=== PATIENT | female | born 1945 | race Caucasian/White ===

== ENCOUNTER 2018-09-26 21:25 | Inpatient (IN) | payer MEDICARE ==
[~2018-09-26] VITALS: Ht 162.6 cm; Wt 65.9 kg
[~2018-09-26 21:25] MED LIST: FENO145T38 PO; LEVO100T PO; LEVO175T2 PO; LISI1TAB13 PO; LOSA25TA96 PO; ONDA4TAB6 PO; SIMV20TA5 PO; VALA100027 PO
[2018-09-26 22:13] LABS: CLARITY,URINE SLIGHTLY CLOUDY (Clear); COLOR,URINE YELLOW (Yellow); GLUCOSE, URINE NEGATIVE (Neg); KETONES,URINE NEGATIVE (Neg); LEUKOCYTE ESTERASE ,URINE NEGATIVE (Neg); NITRITES, URINE POSITIVE (Neg); OCCULT BLOOD,URINE TRACE-INTACT (Neg); PH,URINE 5.5 (4.8-8.0); PROTEIN,URINE >=300 mg/dl (Neg); UROBILINOGEN,URINE 0.2 E.U/dL (0.2-1.0)
[2018-09-26 22:14] LABS: UA COLLECTION TYPE STRAIGHT CATH
[2018-09-26 22:36] LABS: FINE GRANULAR CAST 0-3 /LPF (NEGATIVE)
[2018-09-26 22:38] LABS: BACTERIA,URINE 4+ /HPF (Neg); MUCUS STRANDS NONE SEEN /LPF (Neg); RBC,URINE NONE SEEN /HPF (0-2); SQUAMOUS EPITHELIAL CELL,UR NONE SEEN /LPF (FEW); WBC,URINE 30-50 /HPF (0-4)
[2018-09-26 22:40] LABS: CAL OXALATE CRYSTALS FEW /HPF (NEGATIVE); TRANSITIONAL EPI CELLS,URINE FEW /HPF; WBC CLUMPS,URINE FEW /HPF (NEGATIVE)
[2018-09-26] MEDS ORDERED: normal saline 1000ML IV soln IVB ONE ×2 (23:25→23:55)
[2018-09-26] MEDS ORDERED: cloNIDine 0.1 mg tablet PO ONE (23:30)
[2018-09-26] MEDS ORDERED: amLODIPine 5mg tablet PO ONE (23:55)
[2018-09-26] MEDS ORDERED: CefTRIAXone 2gm/D5W 50ml 50 ML IV ONE (23:55)
[2018-09-27 00:11] LABS: BASOPHILS % (AUTO) 0.6 % (0-1); EOSINOPHILS # (AUTO) 0.2 X10'3 (0-0.9); EOSINOPHILS % (AUTO) 3.1 % (0-6); HEMATOCRIT 36.6 % (35.0-45.0); HEMOGLOBIN 12.4 g/dl (12.0-16.0); LYMPHOCYTES # (AUTO) 1.7 X10'3 (1.1-4.8); LYMPHOCYTES % (AUTO) 26.3 % (21-51); MEAN CORPUSCULAR HEMOGLOBIN 32.8 PG (27.0-31.0); MEAN CORPUSCULAR HGB CONC 33.8 % (33.0-36.5); MEAN CORPUSCULAR VOLUME 96.8 FL (78-98); MEAN PLATELET VOLUME 8.7 FL (7.4-10.4); MONOCYTES # (AUTO) 0.4 X10'3 (0-0.9); MONOCYTES % (AUTO) 6.8 % (2-12); NEUTROPHILS % (AUTO) 63.2 % (42-75); PLATELET COUNT 230 X10'3 (140-440); RED BLOOD COUNT 3.78 X10'6 (4.20-5.60); WHITE BLOOD COUNT 6.3 X10'3 (4.5-11.0)
[2018-09-27 00:13] LABS: PARTIAL THROMBOPLASTIN TIME 27 SECONDS (22-32); PROTHROMBIN TIME 9.9 SECONDS (9.0-12.0)
[2018-09-27 00:15] LABS: ALANINE AMINOTRANSFERASE 27 U/L (12-78); ALBUMIN 2.3 G/DL (3.4-5.0); ALBUMIN/GLOBULIN RATIO 0.7 (1.1-1.5); ALKALINE PHOSPHATASE 87 IU/L (46-116); ANION GAP 5 (8-16); ASPARTATE AMINO TRANSFERASE 28 U/L (10-37); BILIRUBIN,TOTAL 0.3 MG/DL (0.1-1.0); BLOOD UREA NITROGEN 28 MG/DL (7-18); BUN/CREATININE RATIO 18.2 (6.6-38.0); CALCIUM 9.4 MG/DL (8.5-10.1); CHLORIDE 109 MMOL/L (99-107); CREATININE 1.54 MG/DL (0.40-0.90); GLUCOSE 100 MG/DL (70-104); POTASSIUM 3.6 MMOL/L (3.5-5.1); SODIUM 145 MMOL/L (135-145); TOTAL CARBON DIOXIDE 31.4 MMOL/L (24-32); TOTAL PROTEIN 5.4 G/DL (6.4-8.2); eGFR 33 ML/MIN
[2018-09-27] MEDS ORDERED: GABA-532 PO ×2 (00:31→00:33)
[2018-09-27] MEDS ORDERED: DONE23TA7 PO (00:31)
[2018-09-27] MEDS ORDERED: DET2LAC PO (00:32)
[2018-09-27] MEDS ORDERED: MELO-102 PO (00:32)
[2018-09-27] MEDS ORDERED: normal saline 1000ml 1,000 ML IV SCH (01:29)
[2018-09-27] MEDS ORDERED: diphenhydrAMINE 25mg capsule PO PRN (01:30)
[2018-09-27] MEDS ORDERED: ondansetron/PF 4mg/2ml inj IV PRN (01:30)
[2018-09-27] MEDS ORDERED: magnesium hydroxide 30ml (MOM) UD suspension PO PRN (01:30)
[2018-09-27] MEDS ORDERED: HYDROmorphone 1 mg/ml syringe IV PRN (01:30)
[2018-09-27] MEDS ORDERED: mag hydrox/Alum hydrox/simeth 30ml oral suspension PO PRN (01:30)
[2018-09-27] MEDS ORDERED: acetaminophen 650mg rectal suppository RC PRN (01:30)
[2018-09-27] MEDS ORDERED: diphenhydrAMINE 50 mg/ml inj IV PRN (01:30)
[2018-09-27] MEDS ORDERED: hydrALAZINE 20mg/ml inj. IV PRN (01:30)
[2018-09-27] MEDS ORDERED: bisacodyl 10mg suppository rectal RC PRN (01:30)
[2018-09-27] MEDS ORDERED: acetaminophen 325mg tablet PO PRN ×2 (01:30)
[2018-09-27] MEDS ORDERED: morphine 2 MG/ML inj. syringe IV PRN (01:30)
[2018-09-27] MEDS ORDERED: metoclopramide 5 mg/ml inj IV PRN (01:30)
[2018-09-27 02:05] LABS: PHOSPHORUS 3.1 MG/DL (2.3-4.5); TROPONIN I < 0.04 NG/ML (0.0-0.05)
[2018-09-27] MEDS ORDERED: CEPH250T PO (03:19)
[2018-09-27] MEDS: docusate sod 100mg capsule PO SCH ×2 (08:00→20:42)
[2018-09-27] MEDS: cloNIDine 0.1 mg tablet PO SCH ×3 (08:00→20:42)
[2018-09-27] MEDS: heparin, porcine 5000 units/ml vial SQ SCH ×2 (10:56→15:37)
[2018-09-27 12:34] VITALS: BP 201/80
[2018-09-27 12:39] VITALS: BP 211/84
[2018-09-27] MEDS: CefTRIAXone/D5W-Rocephin 1gm 50 ML IV SCH (12:41)
[2018-09-27] MEDS ORDERED: amLODIPine 5mg tablet PO ONE (14:30)
[2018-09-27] MEDS: DONEPEZIL 23 MG PO SCH (14:35)
[2018-09-27] MEDS: levoTHYROXINE 100mcg tablet PO SCH (15:18)
[2018-09-27 15:21] VITALS: BP 173/70
[2018-09-27 16:18] LABS: CLARITY,URINE CLEAR (Clear); COLOR,URINE YELLOW (Yellow); GLUCOSE, URINE NEGATIVE (Neg); KETONES,URINE NEGATIVE (Neg); LEUKOCYTE ESTERASE ,URINE NEGATIVE (Neg); NITRITES, URINE NEGATIVE (Neg); OCCULT BLOOD,URINE SMALL (Neg); PH,URINE 7.5 (4.8-8.0); PROTEIN,URINE 100 mg/dl (Neg); UROBILINOGEN,URINE 0.2 E.U/dL (0.2-1.0)
[2018-09-27 16:58] LABS: UA COLLECTION TYPE FOLEY CATH
[2018-09-27 16:59] LABS: BACTERIA,URINE NONE SEEN /HPF (Neg); MUCUS STRANDS NONE SEEN /LPF (Neg); SQUAMOUS EPITHELIAL CELL,UR NONE SEEN /LPF (FEW); WBC,URINE 0-4 /HPF (0-4)
[2018-09-27 19:00] VITALS: BP 166/61
[2018-09-27] MEDS: oxybutynin 5mg tablet PO SCH (20:40)
[2018-09-27] MEDS: gabapentin 300mg capsule PO SCH (20:41)
[2018-09-27] MEDS: hyDRALAzine 10mg tablet PO PRN (20:41)
[2018-09-27] MEDS ORDERED: temazepam 15mg capsule PO PRN (21:00)
[2018-09-27 23:00] VITALS: BP 151/57
[2018-09-28] MEDS: CefTRIAXone/D5W-Rocephin 1gm 50 ML IV SCH ×2 (00:15→13:18)
[2018-09-28] MEDS: heparin, porcine 5000 units/ml vial SQ SCH ×3 (00:16→16:00)
[2018-09-28 03:00] VITALS: BP 170/69
[2018-09-28 06:48] LABS: BASOPHILS % (AUTO) 0.8 % (0-1); EOSINOPHILS # (AUTO) 0.3 X10'3 (0-0.9); EOSINOPHILS % (AUTO) 4.6 % (0-6); HEMATOCRIT 35.2 % (35.0-45.0); HEMOGLOBIN 11.7 g/dl (12.0-16.0); LYMPHOCYTES # (AUTO) 1.4 X10'3 (1.1-4.8); LYMPHOCYTES % (AUTO) 24.2 % (21-51); MEAN CORPUSCULAR HEMOGLOBIN 31.9 PG (27.0-31.0); MEAN CORPUSCULAR HGB CONC 33.1 % (33.0-36.5); MEAN CORPUSCULAR VOLUME 96.5 FL (78-98); MEAN PLATELET VOLUME 9.3 FL (7.4-10.4); MONOCYTES # (AUTO) 0.3 X10'3 (0-0.9); MONOCYTES % (AUTO) 4.7 % (2-12); NEUTROPHILS # (AUTO) 3.8 X10'3 (1.8-7.7); NEUTROPHILS % (AUTO) 65.7 % (42-75); PLATELET COUNT 200 X10'3 (140-440); RED BLOOD COUNT 3.65 X10'6 (4.20-5.60); RED CELL DISTRIBUTION WIDTH 15.2 % (11.5-14.5); WHITE BLOOD COUNT 5.8 X10'3 (4.5-11.0)
[2018-09-28 06:52] LABS: ALBUMIN 2.3 G/DL (3.4-5.0); ANION GAP 6 (8-16); BLOOD UREA NITROGEN 24 MG/DL (7-18); CALCIUM 9.3 MG/DL (8.5-10.1); CHLORIDE 109 MMOL/L (99-107); CHOL/HDL RATIO 3.6 (0.00-4.99); CHOLESTEROL 196 MG/DL (0-200); GLUCOSE 85 MG/DL (70-104); HDL CHOLESTEROL 54 MG/DL (35-60); LDL CHOLESTEROL 122 MG/DL (50-100); POTASSIUM 3.7 MMOL/L (3.5-5.1); SODIUM 143 MMOL/L (135-145); TOTAL CARBON DIOXIDE 28.1 MMOL/L (24-32); TRIGLYCERIDES 132 MG/DL (20-135); eGFR 44 ML/MIN
[2018-09-28 07:00] VITALS: BP 184/66
[2018-09-28] MEDS: DONEPEZIL 23 MG PO SCH (08:00)
[2018-09-28] MEDS: cloNIDine 0.1 mg tablet PO SCH ×2 (08:00→13:00)
[2018-09-28] MEDS: gabapentin 300mg capsule PO SCH ×2 (08:52→20:39)
[2018-09-28] MEDS: amLODIPine 5mg tablet PO SCH (08:53)
[2018-09-28] MEDS: docusate sod 100mg capsule PO SCH ×2 (08:53→20:39)
[2018-09-28] MEDS: levoTHYROXINE 100mcg tablet PO SCH (08:54)
[2018-09-28] MEDS: atorvastatin 20mg tablet PO SCH (08:54)
[2018-09-28] MEDS: oxybutynin 5mg tablet PO SCH ×3 (08:54→20:39)
[2018-09-28 11:00] VITALS: BP 171/66
[2018-09-28 15:00] VITALS: BP 153/52
[2018-09-28] MEDS: donepezil 5mg tablet PO SCH (15:19)
[2018-09-28 18:00] VITALS: BP 186/65
[2018-09-28] MEDS: lactobacillus rhamnosus 10,000 MMU CELLS/CAPSULE PO SCH (20:39)
[2018-09-28 22:00] VITALS: BP 210/67
[2018-09-29] MEDS: CefTRIAXone/D5W-Rocephin 1gm 50 ML IV SCH ×2 (00:31→11:16)
[2018-09-29] MEDS: heparin, porcine 5000 units/ml vial SQ SCH ×3 (00:32→15:45)
[2018-09-29] MEDS: hyDRALAzine 10mg tablet PO PRN (00:37)
[2018-09-29 02:00] VITALS: BP 208/63
[2018-09-29] MEDS ORDERED: cloNIDine 0.1 mg tablet PO ONE (02:55)
[2018-09-29 06:42] LABS: BASOPHILS % (AUTO) 0.4 % (0-1); EOSINOPHILS # (AUTO) 0.2 X10'3 (0-0.9); EOSINOPHILS % (AUTO) 3.4 % (0-6); HEMATOCRIT 35.8 % (35.0-45.0); LYMPHOCYTES # (AUTO) 1.6 X10'3 (1.1-4.8); LYMPHOCYTES % (AUTO) 25.4 % (21-51); MEAN CORPUSCULAR HEMOGLOBIN 32.5 PG (27.0-31.0); MEAN CORPUSCULAR HGB CONC 33.5 % (33.0-36.5); MEAN CORPUSCULAR VOLUME 96.9 FL (78-98); MEAN PLATELET VOLUME 8.9 FL (7.4-10.4); MONOCYTES # (AUTO) 0.3 X10'3 (0-0.9); MONOCYTES % (AUTO) 5.5 % (2-12); NEUTROPHILS # (AUTO) 4.1 X10'3 (1.8-7.7); NEUTROPHILS % (AUTO) 65.3 % (42-75); PLATELET COUNT 208 X10'3 (140-440); RED BLOOD COUNT 3.69 X10'6 (4.20-5.60); RED CELL DISTRIBUTION WIDTH 14.9 % (11.5-14.5); WHITE BLOOD COUNT 6.3 X10'3 (4.5-11.0)
[2018-09-29 07:05] VITALS: BP 158/61
[2018-09-29 07:07] LABS: ALBUMIN 2.2 G/DL (3.4-5.0); ANION GAP 8 (8-16); BLOOD UREA NITROGEN 24 MG/DL (7-18); CALCIUM 9.5 MG/DL (8.5-10.1); CHLORIDE 110 MMOL/L (99-107); CREATININE 1.26 MG/DL (0.40-0.90); GLUCOSE 94 MG/DL (70-104); POTASSIUM 3.7 MMOL/L (3.5-5.1); SODIUM 145 MMOL/L (135-145); TOTAL CARBON DIOXIDE 26.9 MMOL/L (24-32); eGFR 41 ML/MIN
[2018-09-29] MEDS: lactobacillus rhamnosus 10,000 MMU CELLS/CAPSULE PO SCH ×2 (07:34→20:46)
[2018-09-29] MEDS: oxybutynin 5mg tablet PO SCH ×3 (07:34→20:46)
[2018-09-29] MEDS: atorvastatin 20mg tablet PO SCH (07:34)
[2018-09-29] MEDS: docusate sod 100mg capsule PO SCH ×2 (07:34→20:46)
[2018-09-29] MEDS: levoTHYROXINE 100mcg tablet PO SCH (07:34)
[2018-09-29] MEDS: gabapentin 300mg capsule PO SCH ×2 (07:34→20:46)
[2018-09-29] MEDS: amLODIPine 5mg tablet PO SCH (07:34)
[2018-09-29] MEDS: donepezil 5mg tablet PO SCH (08:05)
[2018-09-29 11:00] VITALS: BP 121/49
[2018-09-29] MEDS ORDERED: NOR5T PO (12:28)
[2018-09-29] MEDS ORDERED: LEVO500T2 PO (12:28)
[2018-09-29] MEDS ORDERED: pneumococcal 23-VAL P-sac vacc 25 mcg/0.5ml vial IMVAC ONE (13:20)
[2018-09-29 16:19] VITALS: BP 173/57
[2018-09-29 18:00] VITALS: BP 205/65
[2018-09-29] MEDS: hydrALAZINE 25 MG tablet PO SCH (18:08)
[2018-09-29 22:00] VITALS: BP 191/72
[2018-09-30] MEDS: CefTRIAXone/D5W-Rocephin 1gm 50 ML IV SCH ×2 (01:37→13:20)
[2018-09-30] MEDS: heparin, porcine 5000 units/ml vial SQ SCH ×2 (01:38→09:16)
[2018-09-30] MEDS: hydrALAZINE 25 MG tablet PO SCH ×3 (01:38→14:00)
[2018-09-30 02:00] VITALS: BP 164/49
[2018-09-30 06:21] LABS: BASOPHILS % (AUTO) 0.6 % (0-1); EOSINOPHILS # (AUTO) 0.3 X10'3 (0-0.9); EOSINOPHILS % (AUTO) 5.1 % (0-6); HEMATOCRIT 35.7 % (35.0-45.0); HEMOGLOBIN 11.9 g/dl (12.0-16.0); LYMPHOCYTES # (AUTO) 1.6 X10'3 (1.1-4.8); MEAN CORPUSCULAR HEMOGLOBIN 32.3 PG (27.0-31.0); MEAN CORPUSCULAR HGB CONC 33.2 % (33.0-36.5); MEAN CORPUSCULAR VOLUME 97.3 FL (78-98); MEAN PLATELET VOLUME 9.7 FL (7.4-10.4); MONOCYTES # (AUTO) 0.3 X10'3 (0-0.9); MONOCYTES % (AUTO) 5.4 % (2-12); NEUTROPHILS # (AUTO) 3.1 X10'3 (1.8-7.7); NEUTROPHILS % (AUTO) 58.9 % (42-75); PLATELET COUNT 215 X10'3 (140-440); RED BLOOD COUNT 3.66 X10'6 (4.20-5.60); WHITE BLOOD COUNT 5.2 X10'3 (4.5-11.0)
[2018-09-30 06:38] LABS: ALBUMIN 2.2 G/DL (3.4-5.0); ANION GAP 8 (8-16); BLOOD UREA NITROGEN 25 MG/DL (7-18); BUN/CREATININE RATIO 19.5 (6.6-38.0); CALCIUM 9.4 MG/DL (8.5-10.1); CHLORIDE 109 MMOL/L (99-107); CREATININE 1.28 MG/DL (0.40-0.90); GLUCOSE 86 MG/DL (70-104); POTASSIUM 3.9 MMOL/L (3.5-5.1); SODIUM 144 MMOL/L (135-145); TOTAL CARBON DIOXIDE 26.9 MMOL/L (24-32); eGFR 41 ML/MIN
[2018-09-30 07:00] VITALS: BP 134/50
[2018-09-30] MEDS: docusate sod 100mg capsule PO SCH (08:00)
[2018-09-30] MEDS: gabapentin 300mg capsule PO SCH (09:12)
[2018-09-30] MEDS: amLODIPine 5mg tablet PO SCH (09:13)
[2018-09-30] MEDS: atorvastatin 20mg tablet PO SCH (09:13)
[2018-09-30] MEDS: levoTHYROXINE 100mcg tablet PO SCH (09:13)
[2018-09-30] MEDS: oxybutynin 5mg tablet PO SCH ×2 (09:13→13:19)
[2018-09-30] MEDS: donepezil 5mg tablet PO SCH (09:14)
[2018-09-30] MEDS: lactobacillus rhamnosus 10,000 MMU CELLS/CAPSULE PO SCH (09:25)
[2018-09-30 11:00] VITALS: BP 178/65
[2018-09-30] MEDS ORDERED: amLODIPine 5mg tablet PO ONE (13:10)
[2018-09-30] MEDS ORDERED: NOR5T PO (14:10)
== END 2018-09-30 15:20 | disposition home or self-care (01) | DRG 682 ==
LOC: ER 21:26 → ED HOLD 09-27 01:29 → PCU 3S 09-27 11:59
PROVIDERS: ADMIT Family Medicine; ATTEND Internal Medicine
PROC: 3E0234Z Introduction of Serum, Toxoid and Vaccine into Muscle, Percutaneous Approach (ICD-10-PCS; principal; 2018-09-29)
DX: N17.9 Acute kidney failure, unspecified (principal); E43 Unspecified severe protein-calorie malnutrition; N39.0 Urinary tract infection, site not specified; B96.20 Unspecified Escherichia coli [E. coli] as the cause of diseases classified elsewhere; R00.1 Bradycardia, unspecified; E11.9 Type 2 diabetes mellitus without complications; W18.39XA Other fall on same level, initial encounter; E86.0 Dehydration; E86.1 Hypovolemia; F03.90 Unspecified dementia, unspecified severity, without behavioral disturbance, psychotic disturbance, mood disturbance, and anxiety; I10 Essential (primary) hypertension; R32 Unspecified urinary incontinence; Z90.49 Acquired absence of other specified parts of digestive tract; Z23 Encounter for immunization; Z90.710 Acquired absence of both cervix and uterus; Z79.899 Other long term (current) drug therapy; Z68.24 Body mass index [BMI] 24.0-24.9, adult; Y93.89 Activity, other specified; Y92.89 Other specified places as the place of occurrence of the external cause; Y99.8 Other external cause status
CPT/HCPCS: 36415; 71045; 80048; 80053; 80061; 81001; 83036; 83605; 83735; 83880; 84100; 84145; 84484; 85025; 85610; 85730; 87040; 87070; 87077; 87088; 87186; 90732; 93005; 96365; 97110; 97116; 97162; 97530; 99285; G0378; J0360; J0696; J1644

== ENCOUNTER 2018-12-03 22:02 | Inpatient (IN) | payer MEDICARE ==
[~2018-12-03] VITALS: Ht 160 cm; Wt 65.9 kg
[~2018-12-03 22:02] MED LIST changes: +DET2LAC PO; +DONE23TA7 PO; -FENO145T38 PO; +GABA-532 PO; -LEVO175T2 PO; -LISI1TAB13 PO; -LOSA25TA96 PO; +NOR5T PO; -ONDA4TAB6 PO; -VALA100027 PO
[2018-12-03] MEDS ORDERED: cloNIDine 0.1 mg tablet PO ONE (22:15)
[2018-12-03] MEDS ORDERED: acetaminophen 325mg tablet PO ONE (22:15)
[2018-12-03] MEDS ORDERED: hydrALAZINE 20mg/ml inj. IV ONE ×2 (22:15→23:50)
--- NOTE | 2018-12-03 22:17 | NUR ---
ERP was made aware of vital signs at time of triage
[2018-12-03 22:50] LABS: BASOPHILS % (AUTO) 0.3 % (0-1); EOSINOPHILS # (AUTO) 0.2 X10'3 (0-0.9); EOSINOPHILS % (AUTO) 2.7 % (0-6); HEMATOCRIT 41.2 % (35.0-45.0); HEMOGLOBIN 13.9 g/dl (12.0-16.0); LYMPHOCYTES # (AUTO) 1.5 X10'3 (1.1-4.8); LYMPHOCYTES % (AUTO) 18.4 % (21-51); MEAN CORPUSCULAR HEMOGLOBIN 32.4 PG (27.0-31.0); MEAN CORPUSCULAR HGB CONC 33.8 g/dL (33.0-36.5); MEAN CORPUSCULAR VOLUME 95.7 FL (78-98); MEAN PLATELET VOLUME 8.6 FL (7.4-10.4); MONOCYTES # (AUTO) 0.4 X10'3 (0-0.9); NEUTROPHILS # (AUTO) 5.9 X10'3 (1.8-7.7); NEUTROPHILS % (AUTO) 73.6 % (42-75); PLATELET COUNT 193 X10'3 (140-440); RED BLOOD COUNT 4.31 X10'6 (4.20-5.60); RED CELL DISTRIBUTION WIDTH 12.8 % (11.5-14.5); WHITE BLOOD COUNT 8.1 X10'3 (4.5-11.0)
[2018-12-03 23:05] LABS: ALANINE AMINOTRANSFERASE 33 U/L (12-78); ALBUMIN/GLOBULIN RATIO 0.9 (1.1-1.5); ALKALINE PHOSPHATASE 79 IU/L (46-116); ANION GAP 6 (8-16); ASPARTATE AMINO TRANSFERASE 32 U/L (10-37); BILIRUBIN,TOTAL 0.4 MG/DL (0.1-1.0); BLOOD UREA NITROGEN 31 MG/DL (7-18); BUN/CREATININE RATIO 21.1 (6.6-38.0); CALCIUM 9.8 MG/DL (8.5-10.1); CHLORIDE 111 MMOL/L (99-107); CREATININE 1.47 MG/DL (0.40-0.90); GLUCOSE 96 MG/DL (70-104); POTASSIUM 3.5 MMOL/L (3.5-5.1); SODIUM 145 MMOL/L (135-145); TOTAL CARBON DIOXIDE 28.2 MMOL/L (24-32); TOTAL PROTEIN 6.4 G/DL (6.4-8.2); eGFR 35 ML/MIN
[2018-12-03 23:11] LABS: MAGNESIUM 1.9 MG/DL (1.5-2.4)
[2018-12-03] MEDS ORDERED: cloNIDine 0.1 MG/24 HOUR patch (7 day patch) TD ONE (23:50)
--- NOTE | 2018-12-04 | NUR ---
Requesting food, okay'd per ERP, food provided
[2018-12-04 00:32] LABS: CLARITY,URINE SLIGHTLY CLOUDY (Clear); COLOR,URINE YELLOW (Yellow); GLUCOSE, URINE NEGATIVE (Neg); KETONES,URINE NEGATIVE (Neg); LEUKOCYTE ESTERASE ,URINE NEGATIVE (Neg); NITRITES, URINE NEGATIVE (Neg); OCCULT BLOOD,URINE TRACE-LYSED (Neg); PROTEIN,URINE >=300 mg/dl (Neg); UROBILINOGEN,URINE 0.2 E.U/dL (0.2-1.0)
[2018-12-04 00:36] LABS: UA COLLECTION TYPE STRAIGHT CATH
[2018-12-04 00:40] LABS: SQUAMOUS EPITHELIAL CELL,UR MODERATE /LPF (FEW)
[2018-12-04 00:41] LABS: AMORPHOUS URATES 2+; BACTERIA,URINE 1+ /HPF (Neg); RBC,URINE 0-2 /HPF (0-2)
[2018-12-04] MEDS ORDERED: CIPR-230 PO (00:47)
[2018-12-04] MEDS ORDERED: magnesium hydroxide 30ml (MOM) UD suspension PO PRN (01:45)
[2018-12-04] MEDS ORDERED: mag hydrox/Alum hydrox/simeth 30ml oral suspension PO PRN (01:45)
[2018-12-04] MEDS ORDERED: normal saline 1000ml 1,000 ML IV SCH (01:45)
[2018-12-04] MEDS ORDERED: acetaminophen 325mg tablet PO PRN (01:45)
[2018-12-04] MEDS ORDERED: hydrALAZINE 20mg/ml inj. IV PRN (01:45)
[2018-12-04] MEDS ORDERED: enalaprilat dihydrate 2.5mg/2ml vial IV PRN (01:45)
[2018-12-04] MEDS ORDERED: ondansetron/PF 4mg/2ml inj IV PRN (01:45)
[2018-12-04] MEDS ORDERED: IRBE150T27 PO (03:10)
[2018-12-04] MEDS ORDERED: MELO-102 PO (03:10)
[2018-12-04] MEDS ORDERED: AMLO5TAB4 PO (03:10)
--- NOTE | 2018-12-04 03:12 | NUR ---
Placed on hospital bed, repositioned to side per patient's request
--- NOTE | 2018-12-04 06:28 | NUR ---
attempted to call report. no RN assigned. will call back.
--- NOTE | 2018-12-04 06:35 | NUR ---
Received report from ED RN Judd. awaiting Pts arrival to unit.
[2018-12-04 06:40] VITALS: BP 191/79
--- NOTE | 2018-12-04 06:45 | NUR ---
Pt arrived to unit on hospital bed accompanied by ED staff. Vital signs obtained, Pt oriented to room, telemetry monitoring in place, belongings in the clothset, 2 RN skin check complete, will continue to monitor.
[2018-12-04] MEDS ORDERED: DONEPEZIL 23 MG PO SCH (08:00)
[2018-12-04] MEDS: losartan 50mg tablet PO SCH (09:04)
[2018-12-04] MEDS: gabapentin 300mg capsule PO SCH ×2 (09:05→20:10)
[2018-12-04] MEDS: atorvastatin 20mg tablet PO SCH (09:05)
[2018-12-04] MEDS: amLODIPine 5mg tablet PO SCH (09:06)
[2018-12-04] MEDS: MELOXICAM 15 MG PO SCH (09:07)
[2018-12-04] MEDS: hydrALAZINE 25 MG tablet PO SCH ×3 (09:07→23:54)
[2018-12-04] MEDS: levoTHYROXINE 100mcg tablet PO SCH (09:07)
[2018-12-04 09:45] LABS: ALANINE AMINOTRANSFERASE 30 U/L (12-78); ALBUMIN 2.8 G/DL (3.4-5.0); ALBUMIN/GLOBULIN RATIO 0.9 (1.1-1.5); ALKALINE PHOSPHATASE 66 IU/L (46-116); ANION GAP 10 (8-16); ASPARTATE AMINO TRANSFERASE 28 U/L (10-37); BILIRUBIN,TOTAL 0.5 MG/DL (0.1-1.0); BLOOD UREA NITROGEN 27 MG/DL (7-18); BUN/CREATININE RATIO 20.9 (6.6-38.0); CALCIUM 9.6 MG/DL (8.5-10.1); CHLORIDE 110 MMOL/L (99-107); CREATININE 1.29 MG/DL (0.40-0.90); GLUCOSE 89 MG/DL (70-104); POTASSIUM 3.3 MMOL/L (3.5-5.1); SODIUM 145 MMOL/L (135-145); TOTAL CARBON DIOXIDE 25.2 MMOL/L (24-32); TOTAL PROTEIN 5.9 G/DL (6.4-8.2); eGFR 40 ML/MIN
[2018-12-04] MEDS ORDERED: potassium Cl 20 mEq SR tablet PO PRN (10:05)
[2018-12-04] MEDS ORDERED: magnesium Cl slow-release 64mg tablet PO PRN (10:05)
[2018-12-04] MEDS ORDERED: potassium Cl 40MEQ/NS 500ml 500 ML IV PRN ×2 (10:05)
[2018-12-04] MEDS ORDERED: magnesium 4gm in 100ml NS 100 ML IV PRN (10:05)
[2018-12-04 11:00] VITALS: BP 122/54
[2018-12-04 15:00] VITALS: BP 155/65
[2018-12-04] MEDS: enoxaparin 40mg/0.4ml syringe SUBCUT SCH (15:03)
[2018-12-04] MEDS: tolterodine 2mg SR capsule (24hr) PO SCH (15:03)
[2018-12-04] MEDS: potassium Cl 20 mEq SR tablet PO PRN ×3 (15:04→23:54)
[2018-12-04 18:00] VITALS: BP 159/68
--- NOTE | 2018-12-04 18:29 | NUR ---
[place] documentation: I have reviewed and agree with all interventions, assessments performed and documented by Kimberlee CHOPRA. [place] Medication Administration: For this medication-pass time frame, all medication were reviewed, dispensed, administered and documented per hospital policy by Kimberlee CHOPRA.
--- NOTE | 2018-12-04 18:29 | NUR ---
Problems reprioritized. Patient report given, questions answered & plan of care reviewed with KEYSHA Martines. Patient stable at transfer of care.
--- NOTE | 2018-12-04 18:35 | NUR ---
Patient in room PCU 3018. I have received report from Conrad CHOPRA and had the opportunity to ask questions and assume patient care.
[2018-12-04] MEDS: DONEPEZIL 23 MG PO SCH (20:11)
[2018-12-04 22:00] VITALS: BP 166/61
[2018-12-05 02:00] VITALS: BP 155/70
[2018-12-05 05:43] LABS: BASOPHILS # (AUTO) 0.1 X10'3 (0-0.2); BASOPHILS % (AUTO) 0.9 % (0-1); EOSINOPHILS # (AUTO) 0.5 X10'3 (0-0.9); EOSINOPHILS % (AUTO) 7.9 % (0-6); HEMATOCRIT 35.6 % (35.0-45.0); LYMPHOCYTES # (AUTO) 1.4 X10'3 (1.1-4.8); LYMPHOCYTES % (AUTO) 22.6 % (21-51); MEAN CORPUSCULAR HEMOGLOBIN 32.1 PG (27.0-31.0); MEAN CORPUSCULAR HGB CONC 33.6 g/dL (33.0-36.5); MEAN CORPUSCULAR VOLUME 95.7 FL (78-98); MEAN PLATELET VOLUME 9.2 FL (7.4-10.4); MONOCYTES # (AUTO) 0.3 X10'3 (0-0.9); MONOCYTES % (AUTO) 5.2 % (2-12); NEUTROPHILS % (AUTO) 63.4 % (42-75); PLATELET COUNT 166 X10'3 (140-440); RED BLOOD COUNT 3.72 X10'6 (4.20-5.60); WHITE BLOOD COUNT 6.3 X10'3 (4.5-11.0)
[2018-12-05 06:12] LABS: ALBUMIN 2.5 G/DL (3.4-5.0); ANION GAP 10 (8-16); BLOOD UREA NITROGEN 36 MG/DL (7-18); BUN/CREATININE RATIO 20.2 (6.6-38.0); CALCIUM 9.2 MG/DL (8.5-10.1); CHLORIDE 109 MMOL/L (99-107); CREATININE 1.78 MG/DL (0.40-0.90); GLUCOSE 84 MG/DL (70-104); MAGNESIUM 1.8 MG/DL (1.5-2.4); POTASSIUM 4.3 MMOL/L (3.5-5.1); SODIUM 142 MMOL/L (135-145); TOTAL CARBON DIOXIDE 23.5 MMOL/L (24-32); eGFR 28 ML/MIN
--- NOTE | 2018-12-05 06:16 | NUR ---
Patient in room PCU 3018. I have received report from Juany CHOPRA and had the opportunity to ask questions and assume patient care.
--- NOTE | 2018-12-05 06:17 | NUR ---
Problems reprioritized. Patient report given, questions answered & plan of care reviewed with Kimberlee CHOPRA.
[2018-12-05 07:00] VITALS: BP 128/41
[2018-12-05] MEDS: hydrALAZINE 25 MG tablet PO SCH ×2 (07:53→15:52)
[2018-12-05] MEDS: losartan 50mg tablet PO SCH (07:53)
[2018-12-05] MEDS: atorvastatin 20mg tablet PO SCH (07:54)
[2018-12-05] MEDS: amLODIPine 5mg tablet PO SCH (07:54)
[2018-12-05] MEDS: tolterodine 2mg SR capsule (24hr) PO SCH (07:54)
[2018-12-05] MEDS: gabapentin 300mg capsule PO SCH ×2 (07:54→20:44)
[2018-12-05] MEDS: enoxaparin 40mg/0.4ml syringe SUBCUT SCH (07:55)
[2018-12-05] MEDS: levoTHYROXINE 100mcg tablet PO SCH (07:55)
[2018-12-05] MEDS: MELOXICAM 15 MG PO SCH (07:55)
[2018-12-05] MEDS ORDERED: pneumococcal 23-VAL P-sac vacc 25 mcg/0.5ml vial IMVAC ONE (10:00)
[2018-12-05] MEDS: sodium chloride 0.45% 1,000 ML IV SCH ×2 (10:51→22:48)
[2018-12-05 11:00] VITALS: BP 147/56
[2018-12-05] MEDS ORDERED: HYDR-4069 PO (11:21)
[2018-12-05] MEDS ORDERED: DOXY100C2 PO (11:21)
[2018-12-05 15:00] VITALS: BP 141/66
--- NOTE | 2018-12-05 18:16 | NUR ---
Problems reprioritized. Patient report given, questions answered & plan of care reviewed with Deep RN. Pt stable at transfer of care.
[2018-12-05 19:00] VITALS: BP 154/61
[2018-12-05] MEDS: DONEPEZIL 23 MG PO SCH (20:44)
[2018-12-05 23:00] VITALS: BP 102/54
[2018-12-06] MEDS: hydrALAZINE 25 MG tablet PO SCH ×3 (00:43→16:20)
[2018-12-06 03:00] VITALS: BP 141/55
--- NOTE | 2018-12-06 06:08 | NUR ---
Problems reprioritized. Patient report given, questions answered & plan of care reviewed with KEYSHA Rojas.
--- NOTE | 2018-12-06 06:27 | NUR ---
Patient in room PCU 3018. I have received report from KEYSHA Martines and had the opportunity to ask questions and assume patient care.
[2018-12-06 07:00] VITALS: BP 165/57
[2018-12-06 07:05] LABS: BASOPHILS % (AUTO) 0.6 % (0-1); EOSINOPHILS # (AUTO) 0.5 X10'3 (0-0.9); EOSINOPHILS % (AUTO) 6.6 % (0-6); HEMATOCRIT 36.4 % (35.0-45.0); HEMOGLOBIN 12.4 g/dl (12.0-16.0); LYMPHOCYTES # (AUTO) 1.6 X10'3 (1.1-4.8); LYMPHOCYTES % (AUTO) 23.2 % (21-51); MEAN CORPUSCULAR HEMOGLOBIN 32.6 PG (27.0-31.0); MEAN CORPUSCULAR VOLUME 96.1 FL (78-98); MEAN PLATELET VOLUME 9.4 FL (7.4-10.4); MONOCYTES # (AUTO) 0.4 X10'3 (0-0.9); MONOCYTES % (AUTO) 6.3 % (2-12); NEUTROPHILS # (AUTO) 4.4 X10'3 (1.8-7.7); NEUTROPHILS % (AUTO) 63.3 % (42-75); PLATELET COUNT 178 X10'3 (140-440); RED BLOOD COUNT 3.79 X10'6 (4.20-5.60); RED CELL DISTRIBUTION WIDTH 12.7 % (11.5-14.5)
[2018-12-06 07:44] LABS: ALBUMIN 2.5 G/DL (3.4-5.0); ANION GAP 12 (8-16); BLOOD UREA NITROGEN 41 MG/DL (7-18); BUN/CREATININE RATIO 22.2 (6.6-38.0); CALCIUM 9.6 MG/DL (8.5-10.1); CHLORIDE 108 MMOL/L (99-107); CREATININE 1.85 MG/DL (0.40-0.90); GLUCOSE 80 MG/DL (70-104); MAGNESIUM 1.9 MG/DL (1.5-2.4); POTASSIUM 4.1 MMOL/L (3.5-5.1); SODIUM 142 MMOL/L (135-145); TOTAL CARBON DIOXIDE 21.9 MMOL/L (24-32); eGFR 27 ML/MIN
[2018-12-06] MEDS ORDERED: pneumococcal 23-VAL P-sac vacc 25 mcg/0.5ml vial IMVAC ONE (08:00)
[2018-12-06] MEDS: levoTHYROXINE 100mcg tablet PO SCH (09:12)
[2018-12-06] MEDS: gabapentin 300mg capsule PO SCH ×2 (09:12→19:26)
[2018-12-06] MEDS: tolterodine 2mg SR capsule (24hr) PO SCH (09:12)
[2018-12-06] MEDS: atorvastatin 20mg tablet PO SCH (09:12)
[2018-12-06] MEDS: amLODIPine 5mg tablet PO SCH (09:13)
[2018-12-06] MEDS: MELOXICAM 15 MG PO SCH (09:13)
[2018-12-06] MEDS: losartan 50mg tablet PO SCH (09:13)
[2018-12-06] MEDS: enoxaparin 40mg/0.4ml syringe SUBCUT SCH (09:14)
[2018-12-06 11:00] VITALS: BP 151/65
[2018-12-06] MEDS: furosemide 20MG tablet PO SCH ×2 (13:51→19:26)
[2018-12-06 15:00] VITALS: BP 165/66
--- NOTE | 2018-12-06 18:19 | NUR ---
Problems reprioritized. Patient report given, questions answered & plan of care reviewed with KEYSHA Quiroz.
[2018-12-06 19:00] VITALS: BP 175/67
[2018-12-06] MEDS: DONEPEZIL 23 MG PO SCH (19:31)
[2018-12-07] VITALS: BP 183/68
[2018-12-07] MEDS: hydrALAZINE 25 MG tablet PO SCH ×3 (00:42→15:42)
[2018-12-07 03:00] VITALS: BP 163/46
--- NOTE | 2018-12-07 06:02 | NUR ---
Problems reprioritized. Patient report given, questions answered & plan of care reviewed with am shift nurse Crystal Avila. Addendum: 12/07/18 at 0604 by Gabriella Cole RN Amended: Links added.
[2018-12-07 06:25] LABS: ALBUMIN 2.5 G/DL (3.4-5.0); ANION GAP 8 (8-16); BASOPHILS % (AUTO) 0.6 % (0-1); BLOOD UREA NITROGEN 42 MG/DL (7-18); BUN/CREATININE RATIO 24.7 (6.6-38.0); CALCIUM 9.9 MG/DL (8.5-10.1); CHLORIDE 107 MMOL/L (99-107); EOSINOPHILS # (AUTO) 0.4 X10'3 (0-0.9); EOSINOPHILS % (AUTO) 7.7 % (0-6); GLUCOSE 87 MG/DL (70-104); HEMATOCRIT 37.9 % (35.0-45.0); HEMOGLOBIN 12.8 g/dl (12.0-16.0); LYMPHOCYTES # (AUTO) 1.2 X10'3 (1.1-4.8); LYMPHOCYTES % (AUTO) 21.8 % (21-51); MAGNESIUM 2.3 MG/DL (1.5-2.4); MEAN CORPUSCULAR HEMOGLOBIN 32.3 PG (27.0-31.0); MEAN CORPUSCULAR HGB CONC 33.9 g/dL (33.0-36.5); MEAN CORPUSCULAR VOLUME 95.2 FL (78-98); MONOCYTES # (AUTO) 0.4 X10'3 (0-0.9); NEUTROPHILS # (AUTO) 3.3 X10'3 (1.8-7.7); NEUTROPHILS % (AUTO) 61.9 % (42-75); PLATELET COUNT 191 X10'3 (140-440); POTASSIUM 4.3 MMOL/L (3.5-5.1); RED BLOOD COUNT 3.98 X10'6 (4.20-5.60); RED CELL DISTRIBUTION WIDTH 12.6 % (11.5-14.5); SODIUM 141 MMOL/L (135-145); TOTAL CARBON DIOXIDE 26.5 MMOL/L (24-32); WHITE BLOOD COUNT 5.3 X10'3 (4.5-11.0); eGFR 29 ML/MIN
--- NOTE | 2018-12-07 06:30 | NUR ---
Patient in room PCU 3018. I have received report from KEYSHA Quiroz and had the opportunity to ask questions and assume patient care.
[2018-12-07 07:00] VITALS: BP 160/61
[2018-12-07] MEDS: enoxaparin 40mg/0.4ml syringe SUBCUT SCH (08:09)
[2018-12-07] MEDS: amLODIPine 5mg tablet PO SCH (08:10)
[2018-12-07] MEDS: tolterodine 2mg SR capsule (24hr) PO SCH (08:11)
[2018-12-07] MEDS: furosemide 20MG tablet PO SCH (08:11)
[2018-12-07] MEDS: gabapentin 300mg capsule PO SCH (08:11)
[2018-12-07] MEDS: losartan 50mg tablet PO SCH (08:12)
[2018-12-07] MEDS: levoTHYROXINE 100mcg tablet PO SCH (08:12)
[2018-12-07] MEDS: atorvastatin 20mg tablet PO SCH (08:12)
[2018-12-07] MEDS: MELOXICAM 15 MG PO SCH (08:13)
[2018-12-07 11:00] VITALS: BP 138/48
--- NOTE | 2018-12-07 11:59 | NUR ---
Page to case management: [id number] julius Gil. Any updates on placement for her discharge?
--- NOTE | 2018-12-07 12:08 | NUR ---
PAGER ID: [phone] MESSAGE: [id number] pt Jeffery has had discharge orders since yesterday am. Case management said [facility] accepted her and the papers you need to sign are in the paper chart. Please advise on when she can possible be sent? Thank you - Crystal [phone]
--- NOTE | 2018-12-07 13:00 | NUR ---
GRAYSON CATH D/C'D NO COMPLICATIONS.
--- NOTE | 2018-12-07 15:00 | NUR ---
Physician Extender notified of discharge.
== END 2018-12-07 17:00 | DRG 683 ==
LOC: ER 22:03 → ED HOLD 12-04 01:45 → PCU 3S 12-04 06:46
PROVIDERS: ADMIT Family Medicine; ATTEND Internal Medicine
DX: N17.9 Acute kidney failure, unspecified (principal); N39.0 Urinary tract infection, site not specified; E44.0 Moderate protein-calorie malnutrition; S09.90XA Unspecified injury of head, initial encounter; S20.229A Contusion of unspecified back wall of thorax, initial encounter; I12.9 Hypertensive chronic kidney disease with stage 1 through stage 4 chronic kidney disease, or unspecified chronic kidney disease; I16.0 Hypertensive urgency; I50.9 Heart failure, unspecified; R29.6 Repeated falls; F03.90 Unspecified dementia, unspecified severity, without behavioral disturbance, psychotic disturbance, mood disturbance, and anxiety; B95.4 Other streptococcus as the cause of diseases classified elsewhere; R32 Unspecified urinary incontinence; N18.3 Chronic kidney disease, stage 3 (moderate); E87.6 Hypokalemia; W18.39XA Other fall on same level, initial encounter; E86.0 Dehydration; E11.22 Type 2 diabetes mellitus with diabetic chronic kidney disease; Z91.14 Patient's other noncompliance with medication regimen; Z90.710 Acquired absence of both cervix and uterus; Z90.49 Acquired absence of other specified parts of digestive tract; Z79.890 Hormone replacement therapy; Z79.899 Other long term (current) drug therapy; Z68.25 Body mass index [BMI] 25.0-25.9, adult; Y93.89 Activity, other specified; Y92.89 Other specified places as the place of occurrence of the external cause; Y99.8 Other external cause status
CPT/HCPCS: 36415; 70450; 71045; 72131; 72192; 80048; 80053; 81001; 83735; 83880; 84443; 84484; 85025; 87070; 87077; 87088; 87186; 90732; 93005; 93306; 96374; 96375; 97110; 97116; 97162; 97530; 99285; G0378; J0360; J1650; J7030

== ENCOUNTER 2019-06-25 09:02 | Emergency (ER) | payer MEDICARE ==
[~2019-06-25] VITALS: Ht 157.5 cm; Wt 61.0 kg
[~2019-06-25 09:02] MED LIST changes: -DET2LAC PO; +FURO-150 PO; +HYDR-4070 PO; +LOSA100T57 PO; -NOR5T PO; -SIMV20TA5 PO
[2019-06-25 09:08] VITALS: BP 150/81
[2019-06-25] MEDS ORDERED: TETanus/Pertussis (Acell)/Diphther VAC/PF (Tdap-Adult) 0.5ml syringe IMVAC ONE (09:35)
[2019-06-25 10:39] LABS: CLARITY,URINE CLOUDY (Clear); COLOR,URINE STRAW (Yellow); GLUCOSE, URINE NEGATIVE (Neg); KETONES,URINE NEGATIVE (Neg); LEUKOCYTE ESTERASE ,URINE SMALL (Neg); NITRITES, URINE POSITIVE (Neg); OCCULT BLOOD,URINE NEGATIVE (Neg); PH,URINE 5.5 (4.8-8.0); PROTEIN,URINE 100 mg/dl (Neg); UROBILINOGEN,URINE 0.2 E.U/dL (0.2-1.0)
[2019-06-25 10:45] LABS: UA COLLECTION TYPE STRAIGHT CATH
[2019-06-25 10:49] LABS: MUCUS STRANDS MODERATE /LPF (Neg); SQUAMOUS EPITHELIAL CELL,UR FEW /LPF (FEW); TRANSITIONAL EPI CELLS,URINE FEW /HPF
[2019-06-25 10:50] LABS: WBC,URINE 20-30 /HPF (0-4)
[2019-06-25 10:51] LABS: BACTERIA,URINE 4+ /HPF (Neg); RBC,URINE 0-2 /HPF (0-2)
[2019-06-25] MEDS ORDERED: CefTRIAXone/D5W-Rocephin 1gm 50 ML IV ONE (11:40)
[2019-06-25] MEDS ORDERED: CEPH-572 PO (11:42)
--- NOTE | 2019-06-25 12:14 | NUR ---
CALL PLACED TO [facility] OF [facility] FOR TRANSPORT, SPOKE WITH FREDI AND SHE WILL COME PICK PT UP
== END 2019-06-25 12:43 | disposition home or self-care (01) ==
LOC: ER 09:02
DX: S01.81XA Laceration without foreign body of other part of head, initial encounter (principal); N39.0 Urinary tract infection, site not specified; I10 Essential (primary) hypertension; E11.9 Type 2 diabetes mellitus without complications; Z90.49 Acquired absence of other specified parts of digestive tract; Z90.710 Acquired absence of both cervix and uterus; Z79.2 Long term (current) use of antibiotics; Z79.899 Other long term (current) drug therapy; W01.0XXA Fall on same level from slipping, tripping and stumbling without subsequent striking against object, initial encounter; Y93.01 Activity, walking, marching and hiking; Y92.89 Other specified places as the place of occurrence of the external cause; Y99.8 Other external cause status
CPT/HCPCS: 70450; 81001; 87077; 87088; 87186; 90471; 90715; 96365; 99284; J0696

== ENCOUNTER 2019-09-29 13:30 | Inpatient (IN) | payer MEDICARE ==
[~2019-09-29] VITALS: Ht 165.1 cm; Wt 75.0 kg
[2019-09-29 14:03] LABS: BASOPHILS # (AUTO) 0.1 X10'3 (0-0.2); BASOPHILS % (AUTO) 0.8 % (0-1); EOSINOPHILS # (AUTO) 0.2 X10'3 (0-0.9); EOSINOPHILS % (AUTO) 2.8 % (0-6); HEMATOCRIT 42.1 % (35.0-45.0); HEMOGLOBIN 14.3 g/dl (12.0-16.0); LYMPHOCYTES # (AUTO) 1.6 X10'3 (1.1-4.8); LYMPHOCYTES % (AUTO) 23.5 % (21-51); MEAN CORPUSCULAR HEMOGLOBIN 31.8 PG (27.0-31.0); MEAN CORPUSCULAR VOLUME 93.6 FL (78-98); MEAN PLATELET VOLUME 8.1 FL (7.4-10.4); MONOCYTES # (AUTO) 0.3 X10'3 (0-0.9); MONOCYTES % (AUTO) 5.1 % (2-12); NEUTROPHILS # (AUTO) 4.6 X10'3 (1.8-7.7); NEUTROPHILS % (AUTO) 67.8 % (42-75); PLATELET COUNT 237 X10'3 (140-440); RED CELL DISTRIBUTION WIDTH 12.9 % (11.5-14.5); WHITE BLOOD COUNT 6.7 X10'3 (4.5-11.0)
[2019-09-29 14:23] LABS: ALANINE AMINOTRANSFERASE 22 U/L (12-78); ALBUMIN 3.1 G/DL (3.4-5.0); ALBUMIN/GLOBULIN RATIO 0.9 (1.1-1.5); ALKALINE PHOSPHATASE 74 IU/L (46-116); ANION GAP 9 (8-16); ASPARTATE AMINO TRANSFERASE 20 U/L (10-37); BILIRUBIN,TOTAL 0.5 MG/DL (0.1-1.0); BLOOD UREA NITROGEN 25 MG/DL (7-18); BUN/CREATININE RATIO 15.2 (6.6-38.0); CALCIUM 10.1 MG/DL (8.5-10.1); CHLORIDE 109 MMOL/L (99-107); CREATININE 1.65 MG/DL (0.40-0.90); GLUCOSE 123 MG/DL (70-104); POTASSIUM 3.3 MMOL/L (3.5-5.1); SODIUM 145 MMOL/L (135-145); TOTAL CARBON DIOXIDE 27.4 MMOL/L (24-32); TOTAL PROTEIN 6.5 G/DL (6.4-8.2); eGFR 30 ML/MIN
[2019-09-29] MEDS ORDERED: ondansetron/PF 4mg/2ml inj IV PRN (16:15)
[2019-09-29] MEDS: normal saline 1000ml 1,000 ML IV SCH (16:37)
[2019-09-29] MEDS ORDERED: AMLO5TAB PO (17:06)
[2019-09-29] MEDS ORDERED: CHOL200052 PO (17:06)
[2019-09-29] MEDS ORDERED: SENN-162 PO (17:11)
[2019-09-29 17:30] VITALS: BP 147/58
--- NOTE | 2019-09-29 17:56 | NUR ---
Patient in room PCU 3014. I have received report from KEYSHA Herzog from the ER and had the opportunity to ask questions and assume patient care.
--- NOTE | 2019-09-29 17:57 | NUR ---
Pt arrived on unit 1720 and was brought up via [place] by ER. Pt was transferred to bed with 2P assist. Pt oriented to room including TV and call light within reach. Tele monitor placed.
--- NOTE | 2019-09-29 18:45 | NUR ---
Problems reprioritized. Patient report given, questions answered & plan of care reviewed with Bunny RN.
--- NOTE | 2019-09-29 18:45 | NUR ---
Patient in room PCU 3014. I have received report from Wendi Garcia RN and had the opportunity to ask questions and assume patient care.
[2019-09-29 19:00] VITALS: BP 147/58
[2019-09-29] MEDS ORDERED: potassium CL 10mEq/100ml bag 100 ML IV PRN (19:40)
[2019-09-29] MEDS ORDERED: potassium Cl 20 mEq SR tablet PO PRN (19:40)
[2019-09-29] MEDS: potassium Cl 20 mEq SR tablet PO PRN (20:05)
[2019-09-29] MEDS: heparin, porcine 5000 units/ml vial SQ SCH (20:05)
--- NOTE | 2019-09-29 20:11 | NUR ---
UNABLE TO COMPLETE MED REC pt is not able to remember what medications she takes, pt states "all i know is that i take pills in the morning and at night".
--- NOTE | 2019-09-29 22:52 | NUR ---
Blind in right eye Addendum: 09/29/19 at 2327 by Dima Jeronimo RN Amended: Links added.
[2019-09-29 23:00] VITALS: BP 152/70
[2019-09-30] VITALS (8 sets, daily range): BP systolic 135–184; BP diastolic 57–74
[2019-09-30] MEDS: potassium Cl 20 mEq SR tablet PO PRN (00:05)
[2019-09-30 02:06] LABS: BASOPHILS # (AUTO) 0.1 X10'3 (0-0.2); BASOPHILS % (AUTO) 0.9 % (0-1); EOSINOPHILS # (AUTO) 0.2 X10'3 (0-0.9); EOSINOPHILS % (AUTO) 3.5 % (0-6); HEMATOCRIT 40.8 % (35.0-45.0); HEMOGLOBIN 13.9 g/dl (12.0-16.0); LYMPHOCYTES % (AUTO) 34.5 % (21-51); MEAN CORPUSCULAR HEMOGLOBIN 31.7 PG (27.0-31.0); MEAN CORPUSCULAR HGB CONC 34.1 g/dL (33.0-36.5); MEAN CORPUSCULAR VOLUME 92.9 FL (78-98); MEAN PLATELET VOLUME 8.2 FL (7.4-10.4); MONOCYTES # (AUTO) 0.4 X10'3 (0-0.9); MONOCYTES % (AUTO) 6.7 % (2-12); NEUTROPHILS # (AUTO) 3.2 X10'3 (1.8-7.7); NEUTROPHILS % (AUTO) 54.4 % (42-75); PLATELET COUNT 206 X10'3 (140-440); RED BLOOD COUNT 4.39 X10'6 (4.20-5.60); RED CELL DISTRIBUTION WIDTH 12.4 % (11.5-14.5); WHITE BLOOD COUNT 5.9 X10'3 (4.5-11.0)
[2019-09-30 02:16] LABS: ALBUMIN 2.9 G/DL (3.4-5.0); ANION GAP 9 (8-16); BLOOD UREA NITROGEN 22 MG/DL (7-18); BUN/CREATININE RATIO 14.8 (6.6-38.0); CALCIUM 10.1 MG/DL (8.5-10.1); CHLORIDE 111 MMOL/L (99-107); CREATININE 1.49 MG/DL (0.40-0.90); GLUCOSE 92 MG/DL (70-104); POTASSIUM 3.9 MMOL/L (3.5-5.1); SODIUM 146 MMOL/L (135-145); eGFR 34 ML/MIN
--- NOTE | 2019-09-30 06:32 | NUR ---
Problems reprioritized. Patient report given, questions answered & plan of care reviewed with Yvonne Mera RN.
--- NOTE | 2019-09-30 06:33 | NUR ---
Patient in room PCU 3014. I have received report from Bunny RN and had the opportunity to ask questions and assume patient care.
[2019-09-30] MEDS: heparin, porcine 5000 units/ml vial SQ SCH ×2 (08:33→19:34)
[2019-09-30] MEDS ORDERED: FLU VACC QS2019-20 36MOS UP/PF 60 MCG/0.5 ML SYRINGE IMVAC ONE (10:00)
--- NOTE | 2019-09-30 15:55 | NUR ---
Page Dr. Ronquillo PAGER ID: [phone] MESSAGE: Room 3014B Halie Gil: Patient's latest BP: 168/63. She does take Amlodipine 5mg daily at home. Can we start her back on her home med for HTN? Thank you, Yvonne ext [phone].
--- NOTE | 2019-09-30 18:10 | NUR ---
Patient in room PCU 3013S. I have received report from KEYSHA Russell and had the opportunity to ask questions and assume patient care. Patient is alert and oriented x 3, denies CP, SOB, dizziness, n/v and rated pain 0/10.
--- NOTE | 2019-09-30 18:10 | NUR ---
Problems reprioritized. Patient report given, questions answered & plan of care reviewed with Jayesh CHOPRA. Patient stable at time of transfer of care.
[2019-10-01] VITALS (8 sets, daily range): BP systolic 153–168; BP diastolic 52–74
[2019-10-01 05:13] LABS: ALBUMIN 2.8 G/DL (3.4-5.0); ANION GAP 9 (8-16); BLOOD UREA NITROGEN 21 MG/DL (7-18); BUN/CREATININE RATIO 14.5 (6.6-38.0); CHLORIDE 111 MMOL/L (99-107); CREATININE 1.45 MG/DL (0.40-0.90); GLUCOSE 86 MG/DL (70-104); MAGNESIUM 1.9 MG/DL (1.5-2.4); POTASSIUM 4.3 MMOL/L (3.5-5.1); SODIUM 147 MMOL/L (135-145); TOTAL CARBON DIOXIDE 26.8 MMOL/L (24-32); eGFR 35 ML/MIN
[2019-10-01 05:15] LABS: BASOPHILS # (AUTO) 0.1 X10'3 (0-0.2); BASOPHILS % (AUTO) 1.1 % (0-1); EOSINOPHILS # (AUTO) 0.2 X10'3 (0-0.9); EOSINOPHILS % (AUTO) 4.1 % (0-6); LYMPHOCYTES % (AUTO) 37.8 % (21-51); MEAN CORPUSCULAR HEMOGLOBIN 31.7 PG (27.0-31.0); MEAN CORPUSCULAR HGB CONC 34.2 g/dL (33.0-36.5); MEAN CORPUSCULAR VOLUME 92.5 FL (78-98); MEAN PLATELET VOLUME 8.4 FL (7.4-10.4); MONOCYTES # (AUTO) 0.4 X10'3 (0-0.9); MONOCYTES % (AUTO) 7.4 % (2-12); NEUTROPHILS # (AUTO) 2.6 X10'3 (1.8-7.7); NEUTROPHILS % (AUTO) 49.6 % (42-75); PLATELET COUNT 209 X10'3 (140-440); RED CELL DISTRIBUTION WIDTH 12.8 % (11.5-14.5); WHITE BLOOD COUNT 5.2 X10'3 (4.5-11.0)
--- NOTE | 2019-10-01 06:10 | NUR ---
Problems reprioritized. Patient report given, questions answered & plan of care reviewed with KEYSHA Gooden. Pt stable at shift change
--- NOTE | 2019-10-01 06:44 | NUR ---
Patient in room PCU 3014. I have received report from Jayesh CHOPRA and had the opportunity to ask questions and assume patient care.
[2019-10-01] MEDS: amLODIPine 5mg tablet PO SCH (07:44)
[2019-10-01] MEDS: aspirin 81mg tab.chew PO SCH (07:44)
[2019-10-01] MEDS: vitamin D (cholecalciferol) 1,000 unit tablet PO SCH (07:44)
[2019-10-01] MEDS: losartan 50mg tablet PO SCH (07:44)
[2019-10-01] MEDS: sennosides 8.6mg tablet PO SCH (07:45)
[2019-10-01] MEDS: levoTHYROXINE 100mcg tablet PO SCH (07:45)
[2019-10-01] MEDS: heparin, porcine 5000 units/ml vial SQ SCH ×2 (07:45→19:22)
[2019-10-01] MEDS ORDERED: ASPI-1265 PO (07:53)
--- NOTE | 2019-10-01 09:01 | NUR ---
PAGER ID: [phone] MESSAGE: [id number] Halie Gil: MARISOL Pt BP is 160/70 HR in 50's, pt received AM amlodipine 5mg and losartan 100mg. Thanks Rosalioynne [phone]
--- NOTE | 2019-10-01 12:19 | NUR ---
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 Thanks Rohini [phone]
--- NOTE | 2019-10-01 15:49 | NUR ---
PAGER ID: [phone] MESSAGE: [id number] Halie Gil: MARISOL Due to the holidays pt is unable to be transferred today and will be transferred tomorrow. Thanks
[2019-10-01] MEDS: normal saline 1000ml 1,000 ML IV SCH (16:16)
--- NOTE | 2019-10-01 18:22 | NUR ---
Received report from Anastasia CHOPRA pt is awake watching tv in no apparent distress[facility] running@ 20mL/hr pt did not want dinner tray.
--- NOTE | 2019-10-01 18:24 | NUR ---
Problems reprioritized. Patient report given, questions answered & plan of care reviewed with Shea CHOPRA.
[2019-10-02 02:30] VITALS: BP 161/69
[2019-10-02 04:48] LABS: BASOPHILS # (AUTO) 0.1 X10'3 (0-0.2); EOSINOPHILS # (AUTO) 0.2 X10'3 (0-0.9); EOSINOPHILS % (AUTO) 4.1 % (0-6); HEMATOCRIT 36.4 % (35.0-45.0); HEMOGLOBIN 12.5 g/dl (12.0-16.0); LYMPHOCYTES # (AUTO) 1.9 X10'3 (1.1-4.8); LYMPHOCYTES % (AUTO) 36.6 % (21-51); MEAN CORPUSCULAR HEMOGLOBIN 31.7 PG (27.0-31.0); MEAN CORPUSCULAR HGB CONC 34.2 g/dL (33.0-36.5); MEAN CORPUSCULAR VOLUME 92.7 FL (78-98); MEAN PLATELET VOLUME 8.2 FL (7.4-10.4); MONOCYTES # (AUTO) 0.4 X10'3 (0-0.9); MONOCYTES % (AUTO) 7.2 % (2-12); NEUTROPHILS # (AUTO) 2.6 X10'3 (1.8-7.7); NEUTROPHILS % (AUTO) 51.1 % (42-75); PLATELET COUNT 203 X10'3 (140-440); RED BLOOD COUNT 3.93 X10'6 (4.20-5.60); RED CELL DISTRIBUTION WIDTH 12.7 % (11.5-14.5); WHITE BLOOD COUNT 5.1 X10'3 (4.5-11.0)
[2019-10-02 04:55] LABS: ALBUMIN 2.6 G/DL (3.4-5.0); ANION GAP 11 (8-16); BLOOD UREA NITROGEN 17 MG/DL (7-18); BUN/CREATININE RATIO 11.9 (6.6-38.0); CALCIUM 9.7 MG/DL (8.5-10.1); CHLORIDE 111 MMOL/L (99-107); CREATININE 1.43 MG/DL (0.40-0.90); GLUCOSE 82 MG/DL (70-104); MAGNESIUM 1.8 MG/DL (1.5-2.4); POTASSIUM 3.8 MMOL/L (3.5-5.1); SODIUM 146 MMOL/L (135-145); TOTAL CARBON DIOXIDE 24.5 MMOL/L (24-32); eGFR 36 ML/MIN
[2019-10-02 06:00] VITALS: BP 118/64
--- NOTE | 2019-10-02 06:15 | NUR ---
gave report to Anastasia CHOPRA pt is resting on RA in no apparent distress, call light and items of freq use within reach.
--- NOTE | 2019-10-02 06:30 | NUR ---
Patient in room PCU 3014. I have received report from Stefanie CHOPRA and had the opportunity to ask questions and assume patient care.
[2019-10-02] MEDS: levoTHYROXINE 100mcg tablet PO SCH (07:45)
[2019-10-02] MEDS: amLODIPine 5mg tablet PO SCH (07:45)
[2019-10-02] MEDS: aspirin 81mg tab.chew PO SCH (07:45)
[2019-10-02] MEDS: heparin, porcine 5000 units/ml vial SQ SCH (07:45)
[2019-10-02] MEDS: losartan 50mg tablet PO SCH (07:45)
[2019-10-02] MEDS: sennosides 8.6mg tablet PO SCH (07:45)
[2019-10-02] MEDS: vitamin D (cholecalciferol) 1,000 unit tablet PO SCH (07:45)
[2019-10-02 08:00] VITALS: BP_SYST 118; BP_SYST 155; BP_SYST 173; BP_DIAS 123; BP_DIAS 64; BP_DIAS 67
--- NOTE | 2019-10-02 15:03 | NUR ---
Pt is stable for discharge per md orders, discharge instructions reviewed w/ pt and all questions answered, new medication prescription called in to [facility] [place], Pt will make f/u appt, tele monitor 46 removed and returned, PIV dc'ed and clean dry dressing in place, pt is discharged @ 1435 to [facility], wheeled down to lobby with hospital staff and Assisted living personal to private vehicle, all belongings w/ pt at time of discharge
== END 2019-10-02 14:32 | disposition home or self-care (01) | DRG 641 ==
LOC: ER 13:30 → ED HOLD 16:12 → PCU 3S 17:20
PROVIDERS: ADMIT Internal Medicine; ATTEND Internal Medicine
DX: E86.0 Dehydration (principal); N17.9 Acute kidney failure, unspecified; E03.9 Hypothyroidism, unspecified; E11.51 Type 2 diabetes mellitus with diabetic peripheral angiopathy without gangrene; I12.9 Hypertensive chronic kidney disease with stage 1 through stage 4 chronic kidney disease, or unspecified chronic kidney disease; T50.2X5A Adverse effect of carbonic-anhydrase inhibitors, benzothiadiazides and other diuretics, initial encounter; E11.22 Type 2 diabetes mellitus with diabetic chronic kidney disease; N18.9 Chronic kidney disease, unspecified; E87.6 Hypokalemia; Z66 Do not resuscitate; Z79.82 Long term (current) use of aspirin; Z79.890 Hormone replacement therapy; Z90.49 Acquired absence of other specified parts of digestive tract; Z90.710 Acquired absence of both cervix and uterus; Z79.899 Other long term (current) drug therapy; Y92.89 Other specified places as the place of occurrence of the external cause
CPT/HCPCS: 36415; 70544; 70551; 71045; 80048; 80053; 83735; 83880; 84484; 85025; 87081; 93005; 93306; 93880; 97116; 97161; 97530; 97535; 99285; G0378; J1644; J7030; Q2037

== ENCOUNTER 2021-05-02 14:06 | Emergency (ER) | payer MEDICARE ==
[~2021-05-02] VITALS: Ht 165.1 cm; Wt 72.7 kg
[~2021-05-02 14:06] MED LIST changes: +AMLO5TAB PO; +ASPI-1265 PO; +CHOL200052 PO; -DONE23TA7 PO; -FURO-150 PO; -GABA-532 PO; -HYDR-4070 PO; +SENN-263 PO
[2021-05-02 15:04] LABS: BASOPHILS # (AUTO) 0.1 X10'3 (0-0.2); BASOPHILS % (AUTO) 0.6 % (0-1); EOSINOPHILS # (AUTO) 0.2 X10'3 (0-0.9); EOSINOPHILS % (AUTO) 1.9 % (0-6); HEMATOCRIT 43.6 % (35.0-45.0); HEMOGLOBIN 14.5 g/dl (12.0-16.0); LYMPHOCYTES # (AUTO) 1.3 X10'3 (1.1-4.8); LYMPHOCYTES % (AUTO) 10.7 % (21-51); MEAN CORPUSCULAR HGB CONC 33.3 g/dL (33.0-36.5); MEAN CORPUSCULAR VOLUME 93.2 FL (78-98); MEAN PLATELET VOLUME 8.5 FL (7.4-10.4); MONOCYTES # (AUTO) 0.8 X10'3 (0-0.9); MONOCYTES % (AUTO) 6.9 % (2-12); NEUTROPHILS # (AUTO) 9.6 X10'3 (1.8-7.7); NEUTROPHILS % (AUTO) 79.9 % (42-75); PLATELET COUNT 309 X10'3 (140-440); RED BLOOD COUNT 4.68 X10'6 (4.20-5.60)
[2021-05-02 15:15] LABS: ALANINE AMINOTRANSFERASE 16 U/L (12-78); ALBUMIN 3.1 G/DL (3.4-5.0); ALBUMIN/GLOBULIN RATIO 0.8 (1.1-1.5); ALKALINE PHOSPHATASE 66 IU/L (46-116); ANION GAP 8 (8-16); ASPARTATE AMINO TRANSFERASE 24 U/L (10-37); BILIRUBIN,TOTAL 0.4 MG/DL (0.1-1.0); BLOOD UREA NITROGEN 23 MG/DL (7-18); BUN/CREATININE RATIO 16.3 (6.6-38.0); CALCIUM 10.7 MG/DL (8.5-10.1); CHLORIDE 105 MMOL/L (99-107); CREATININE 1.41 MG/DL (0.40-0.90); GLUCOSE 132 MG/DL (70-104); POTASSIUM 3.8 MMOL/L (3.5-5.1); SODIUM 141 MMOL/L (135-145); TOTAL CARBON DIOXIDE 27.7 MMOL/L (24-32); TOTAL PROTEIN 6.9 G/DL (6.4-8.2); eGFR 36 ML/MIN
[2021-05-02 15:58] LABS: CLARITY,URINE CLOUDY (Clear); COLOR,URINE YELLOW (Yellow); GLUCOSE, URINE NEGATIVE (Neg); KETONES,URINE NEGATIVE (Neg); LEUKOCYTE ESTERASE ,URINE MODERATE (Neg); NITRITES, URINE POSITIVE (Neg); OCCULT BLOOD,URINE TRACE-INTACT (Neg); PROTEIN,URINE 100 mg/dl (Neg); UROBILINOGEN,URINE 0.2 E.U/dL (0.2-1.0)
[2021-05-02 16:03] LABS: UA COLLECTION TYPE STRAIGHT CATH
[2021-05-02 16:07] VITALS: BP 146/67
[2021-05-02 16:08] LABS: WBC,URINE 50-100 /HPF (0-4)
[2021-05-02 16:09] LABS: BACTERIA,URINE 4+ /HPF (Neg); MUCUS STRANDS FEW /LPF (Neg); RBC,URINE 0-2 /HPF (0-2); SQUAMOUS EPITHELIAL CELL,UR FEW /LPF (FEW); WBC CLUMPS,URINE FEW /HPF (NEGATIVE)
[2021-05-02] MEDS ORDERED: MYC15CR TOP (16:15)
[2021-05-02] MEDS ORDERED: CEPH250T PO (16:15)
--- NOTE | 2021-05-02 16:26 | NUR ---
Called [facility] ([facility]) and gave report to staffing administrator Marisa. Facility unable to pick pt up, calling [facility] to set up possible transport.
--- NOTE | 2021-05-02 16:30 | NUR ---
[facility] to arrive around 1730 to transport pt.
--- NOTE | 2021-05-04 13:11 | NUR ---
Lab- micro department, notified me regarding urine culture not being obtained on this patients urine sample. Spoke with Dr. Richmond who reviewed the case, she stated that Keflex was an appropriate antibiotic for this patient and no further action needed to be done for this patient.
== END 2021-05-02 17:30 ==
LOC: ER 14:06
DX: B37.3 Candidiasis of vulva and vagina (principal); N39.0 Urinary tract infection, site not specified; F03.90 Unspecified dementia, unspecified severity, without behavioral disturbance, psychotic disturbance, mood disturbance, and anxiety; I12.9 Hypertensive chronic kidney disease with stage 1 through stage 4 chronic kidney disease, or unspecified chronic kidney disease; E11.22 Type 2 diabetes mellitus with diabetic chronic kidney disease; N18.9 Chronic kidney disease, unspecified; Z90.49 Acquired absence of other specified parts of digestive tract; Z90.710 Acquired absence of both cervix and uterus; Z79.82 Long term (current) use of aspirin; Z79.899 Other long term (current) drug therapy
CPT/HCPCS: 36415; 71045; 80053; 81001; 82948; 85025; 87088; 93005; 99285

== ENCOUNTER 2022-01-19 15:43 | Emergency (ER) | payer MEDICARE ==
[~2022-01-19] VITALS: Ht 165.1 cm; Wt 59.1 kg
[~2022-01-19 15:43] MED LIST changes: +AMOX1TAB15 PO; -ASPI-1265 PO; +ASPI-611 PO; +HEPA500017 SQ; -LEVO100T PO; +LEVO88TA7 PO; +PRAV10TA39 PO
[2022-01-19] MEDS ORDERED: lactulose 20gm/30ml cup PO ONE ×2 (15:55→22:25)
[2022-01-19] MEDS ORDERED: magnesium hydroxide 30ml (MOM) UD suspension PO ONE (15:55)
[2022-01-19] MEDS ORDERED: normal saline 1000ML IV soln IVB ONE ×2 (15:55)
[2022-01-19 17:32] LABS: BASOPHILS # (AUTO) 0.1 X10'3 (0-0.2); EOSINOPHILS # (AUTO) 0.2 X10'3 (0-0.9); EOSINOPHILS % (AUTO) 3.1 % (0-6); HEMATOCRIT 37.7 % (35.0-45.0); HEMOGLOBIN 12.4 g/dl (12.0-16.0); LYMPHOCYTES # (AUTO) 1.8 X10'3 (1.1-4.8); LYMPHOCYTES % (AUTO) 23.4 % (21-51); MEAN CORPUSCULAR HEMOGLOBIN 30.4 PG (27.0-31.0); MEAN CORPUSCULAR VOLUME 91.9 FL (78-98); MEAN PLATELET VOLUME 8.1 FL (7.4-10.4); MONOCYTES # (AUTO) 0.5 X10'3 (0-0.9); MONOCYTES % (AUTO) 6.9 % (2-12); NEUTROPHILS # (AUTO) 4.9 X10'3 (1.8-7.7); NEUTROPHILS % (AUTO) 65.6 % (42-75); PLATELET COUNT 298 X10'3 (140-440); RED CELL DISTRIBUTION WIDTH 13.6 % (11.5-14.5); WHITE BLOOD COUNT 7.5 X10'3 (4.5-11.0)
[2022-01-19 17:55] LABS: ALANINE AMINOTRANSFERASE 28 U/L (12-78); ALBUMIN 3.1 G/DL (3.4-5.0); ALBUMIN/GLOBULIN RATIO 0.8 (1.1-1.5); ALKALINE PHOSPHATASE 71 IU/L (46-116); ANION GAP 11 (8-16); ASPARTATE AMINO TRANSFERASE 23 U/L (10-37); BILIRUBIN,TOTAL 0.2 MG/DL (0.1-1.0); BLOOD UREA NITROGEN 24 MG/DL (7-18); BUN/CREATININE RATIO 14.9 (6.6-38.0); CALCIUM 10.9 MG/DL (8.5-10.1); CHLORIDE 110 MMOL/L (99-107); CREATININE 1.61 MG/DL (0.40-0.90); GLUCOSE 109 MG/DL (70-104); POTASSIUM 4.6 MMOL/L (3.5-5.1); SODIUM 148 MMOL/L (135-145); TOTAL CARBON DIOXIDE 26.8 MMOL/L (24-32); TOTAL PROTEIN 6.8 G/DL (6.4-8.2); eGFR 31 ML/MIN
--- NOTE | 2022-01-19 22:30 | NUR ---
phoned [facility], informed them patient will be returning, they do not have transport and requested we set up transportation. 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
[2022-01-19 22:42] VITALS: BP 169/76
--- NOTE | 2022-01-19 23:17 | NUR ---
report given to KEYSHA Walker
== END 2022-01-20 05:48 | disposition home or self-care (01) ==
LOC: ER 15:44
DX: K59.00 Constipation, unspecified (principal); F03.90 Unspecified dementia, unspecified severity, without behavioral disturbance, psychotic disturbance, mood disturbance, and anxiety; I10 Essential (primary) hypertension; E11.22 Type 2 diabetes mellitus with diabetic chronic kidney disease; N18.9 Chronic kidney disease, unspecified; Z90.49 Acquired absence of other specified parts of digestive tract; Z90.710 Acquired absence of both cervix and uterus; Z79.2 Long term (current) use of antibiotics; Z79.899 Other long term (current) drug therapy
CPT/HCPCS: 36415; 80053; 85025; 96360; 96361; 99285; J7030

== ENCOUNTER 2022-12-17 09:56 | Emergency (ER) | payer MEDICARE ==
[~2022-12-17] VITALS: Ht 162.6 cm; Wt 70.0 kg
[2022-12-17 11:33] VITALS: BP 126/61
[2022-12-17] MEDS ORDERED: ondansetron 4mg rapidly disintigrating tab PO ONE (11:35)
== END 2022-12-17 13:30 | disposition home or self-care (01) ==
LOC: ER 09:57
DX: R11.10 Vomiting, unspecified (principal); F03.90 Unspecified dementia, unspecified severity, without behavioral disturbance, psychotic disturbance, mood disturbance, and anxiety; I12.9 Hypertensive chronic kidney disease with stage 1 through stage 4 chronic kidney disease, or unspecified chronic kidney disease; E13.22 Other specified diabetes mellitus with diabetic chronic kidney disease; N18.9 Chronic kidney disease, unspecified; Z90.49 Acquired absence of other specified parts of digestive tract; Z79.899 Other long term (current) drug therapy; Z79.1 Long term (current) use of non-steroidal anti-inflammatories (NSAID); Z79.2 Long term (current) use of antibiotics
CPT/HCPCS: 93005; 99284

== ENCOUNTER 2024-07-09 15:07 | Emergency (ER) | payer MEDICARE ==
[~2024-07-09] VITALS: Ht 165.1 cm; Wt 79.7 kg
[~2024-07-09 15:07] MED LIST changes: -LOSA100T57 PO; +LOSA100T58 PO
[2024-07-09 16:17] LABS: BASOPHILS # (AUTO) 0.1 X10'3 (0-0.2); BASOPHILS % (AUTO) 0.9 % (0-1); EOSINOPHILS # (AUTO) 0.3 X10'3 (0-0.9); EOSINOPHILS % (AUTO) 3.8 % (0-6); HEMATOCRIT 42.4 % (35.0-45.0); LYMPHOCYTES # (AUTO) 1.4 X10'3 (1.1-4.8); LYMPHOCYTES % (AUTO) 21.2 % (21-51); MEAN CORPUSCULAR HEMOGLOBIN 31.3 PG (27.0-31.0); MEAN CORPUSCULAR HGB CONC 33.1 g/dL (33.0-36.5); MEAN CORPUSCULAR VOLUME 94.6 FL (78-98); MEAN PLATELET VOLUME 8.6 FL (7.4-10.4); MONOCYTES # (AUTO) 0.5 X10'3 (0-0.9); MONOCYTES % (AUTO) 7.1 % (2-12); NEUTROPHILS # (AUTO) 4.6 X10'3 (1.8-7.7); PLATELET COUNT 311 X10'3 (140-440); RED BLOOD COUNT 4.48 X10'6 (4.20-5.60); RED CELL DISTRIBUTION WIDTH 13.9 % (11.5-14.5); WHITE BLOOD COUNT 6.8 X10'3 (4.5-11.0)
[2024-07-09 16:48] LABS: ALANINE AMINOTRANSFERASE 25 U/L (12-78); ALBUMIN 3.1 G/DL (3.4-5.0); ALBUMIN/GLOBULIN RATIO 0.8 (1.1-1.5); ALKALINE PHOSPHATASE 79 IU/L (46-116); ANION GAP 7 (8-16); ASPARTATE AMINO TRANSFERASE 36 U/L (10-37); BILIRUBIN,TOTAL 0.2 MG/DL (0.1-1.0); BLOOD UREA NITROGEN 24 MG/DL (7-18); BUN/CREATININE RATIO 15.9 (10.0-20.0); CALCIUM 10.3 MG/DL (8.5-10.1); CHLORIDE 108 MMOL/L (99-107); CREATININE 1.51 MG/DL (0.40-0.90); GLUCOSE 129 MG/DL (70-104); POTASSIUM 4.4 MMOL/L (3.5-5.1); SODIUM 140 MMOL/L (135-145); TOTAL CARBON DIOXIDE 25.5 MMOL/L (24-32); TOTAL PROTEIN 6.9 G/DL (6.4-8.2); eCRCL 26 ML/MIN; eGFR 33 ML/MIN
[2024-07-09 18:16] VITALS: BP 140/65; PULSE 62; RESP 25; TEMP 98.6; O2SAT 100
== END 2024-07-09 19:08 | disposition home or self-care (01) ==
LOC: ER 15:08
DX: R60.0 Localized edema (principal); I12.9 Hypertensive chronic kidney disease with stage 1 through stage 4 chronic kidney disease, or unspecified chronic kidney disease; E11.22 Type 2 diabetes mellitus with diabetic chronic kidney disease; N18.9 Chronic kidney disease, unspecified; F03.90 Unspecified dementia, unspecified severity, without behavioral disturbance, psychotic disturbance, mood disturbance, and anxiety; Z79.899 Other long term (current) drug therapy; Z79.2 Long term (current) use of antibiotics; Z79.82 Long term (current) use of aspirin; Z90.49 Acquired absence of other specified parts of digestive tract; Z90.710 Acquired absence of both cervix and uterus
CPT/HCPCS: 36415; 71045; 80053; 85025; 93005; 99285